=== PATIENT | male | born 1960 | race Caucasian/White ===

== ENCOUNTER → 2018-05-03 | Outpatient (CLI) | payer BC ==
[~2018-05-03] MED LIST: PREDNISONE10 MG PO
== END | disposition home or self-care (01) ==
LOC: CDC 08:51
DX: Z01.810 Encounter for preprocedural cardiovascular examination (principal); M79.1 Myalgia
CPT/HCPCS: 93000

== ENCOUNTER 2018-05-06 10:59 | Day surgery (SDC) | payer BC ==
[~2018-05-06] VITALS: Ht 177.8 cm; Wt 61.6 kg
[2018-05-06 11:30] VITALS: BP 108/66
[2018-05-06 14:38] VITALS: BP 116/78
[2018-05-06 15:20] VITALS: BP 116/73
== END 2018-05-06 15:30 | disposition home or self-care (01) ==
LOC: SDC 10:59
DX: M31.6 Other giant cell arteritis (principal); R70.0 Elevated erythrocyte sedimentation rate; M79.1 Myalgia; M25.50 Pain in unspecified joint; R79.82 Elevated C-reactive protein (CRP); D49.0 Neoplasm of unspecified behavior of digestive system; Z79.52 Long term (current) use of systemic steroids; Z80.3 Family history of malignant neoplasm of breast; Z80.42 Family history of malignant neoplasm of prostate
CPT/HCPCS: 88305; 88313; J0690; J2250; J3010